=== PATIENT | female | born 1950 ===

== ENCOUNTER 2019-05-12 09:25 | Outpatient (CLI) | payer MEDICARE, OTHER ==
--- NOTE | 2019-05-12 10:40 | CT ---
Exam: CT ANGIOGRAM OF ABDOMINAL AORTA AND CT ANGIOGRAM OF PELVIS: HISTORY: Stomach pain for many years. Evaluate for mesenteric atherosclerosis. TECHNIQUE: CT angiogram of the abdominal aorta and the pelvis is performed in the axial plane. Three- dimensional reformatted images are submitted. FINDINGS: Abdomen CT: Linear densities in the lung bases are presumed to represent chronic change. There is a 4 mm nodule in the medial right lower lobe. Heart: Normal heart size. No significant pleural effusion Solid organs: Appropriate enhancement of the solid organs on this arterial phase exam. Gallbladder: Surgically absent. Mesentery: No mass, lymphadenopathy, free air or free fluid. Alimentary canal: Limited evaluation due to lack of oral contrast. There is evidence of previous erasmo atric change. Unremarkable ileocecal junction. Scattered fecal material in a nondistended, nondilated colon. Suggestion of a normal caliber appendix in the right lower quadrant. No obvious inf lammation. There is diverticulosis of the sigmoid colon. No diverticulitis. There is symmetric enhancement of the kidneys. Bilaterally no obstructive uropathy. CT Pelvis: No mass, lymphadenopathy, free air. Uterus is surgically absent. Unremarkable urinary bladder. Osseous structures: There is degenerative change of the distal thoracic and lumbar spine. CT ANGIOGRAM: The descending thoracic aorta is tortuous. The abdominal aorta demonstrates a normal ca liber. There is atherosclerosis without significant stenosis or periaortic fat stranding. Superior mesenteric artery origin, inferior mesenteric artery origin, celiac artery origin, bilateral renal ar andrew ostium demonstrate appropriate enhancement and luminal diameter. There are mild amounts of atherosclerotic disease involving the origin of the aforementioned vessels. Nevertheless, no signific ant stenosis. The aortic bifurcation and visualized iliac arteries demonstrate small areas of calcified atherosclerotic plaque without significant stenosis. There is a short segment dissection in volving the distal abdominal aorta. Dissection appears to extend into the right common iliac artery. There is evidence of dissection into the right external iliac. IMPRESSION: 1. Atherosclerosis without significant stenosis or narrowing with regards to the vascularity within t he abdomen. 2. 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 Dissection is also noted in the right external iliac artery. 3. 4 mm nodule in the right lower lobe. CODE T Code lung nodule Transcribed Date/Time: 05/12/2019 10:54 AM
== END 2019-05-12 09:26 | disposition home or self-care (01) ==
LOC: BICCT 09:25
PROVIDERS: ATTEND Internal Medicine Gastroenterology
DX: K55.059 Acute (reversible) ischemia of intestine, part and extent unspecified (principal); I70.90 Unspecified atherosclerosis; R91.1 Solitary pulmonary nodule
CPT/HCPCS: 74174; 82565